=== PATIENT | male | born 1980 | race Caucasian/White ===

== ENCOUNTER 2024-05-12 18:21 | Observation (INO) | payer SELFPAY ==
[~2024-05-12] VITALS: Ht 180.3 cm; Wt 88.7 kg
[2024-05-12 20:05] LABS: Source, Urine Clean Catch
[2024-05-12 20:07] LABS: Appearance, Urine Hazy (Clear); Blood, Urine 4+ (Neg); Color, Urine Amber (P-Yellow); Glucose Qualitative, Urine Neg (Neg); Ketones, Urine 1+ (Neg); Leukocyte Esterase, Urine 3+ (Neg); Nitrite, Urine Pos (Neg); Protein, Urine 3+ (Neg); Urobilinogen, Urine 2+ (Normal)
[2024-05-12] MEDS ORDERED: Lactated Ringer's 1,000 ML IV ONE (20:10)
[2024-05-12 20:14] LABS: Bilirubin, Urine 1+ (Neg)
[2024-05-12 20:15] LABS: Bacteria Many /hpf; Granular Casts 0-2 /lpf (0); Mucus Light (0-Heavy); Squamous Epithelial Cells Rare /hpf (Few); White Blood Cells, Urine 25-50 /hpf (0-5)
[2024-05-12] MEDS ORDERED: Ondansetron HCl 2 MG / ML 2ML Vial IV PRN (22:50)
[2024-05-12] MEDS ORDERED: NS 1,000 ML IV SCH (22:50)
[2024-05-12] MEDS ORDERED: FentaNYL Citrate 50 MCG/ML 2 ML Injection IV PRN (22:50)
[2024-05-12] MEDS ORDERED: FLU VACC TS2024-25(6MOS UP)/PF 45 MCG/0.5 ML SYRINGE IM SCH (22:50)
[2024-05-12] MEDS ORDERED: Acetaminophen 325 MG TABLET PO PRN (22:50)
[2024-05-12] MEDS ORDERED: Enoxaparin 40 MG/0.4 ML SYR SC SCH ×2 (23:00)
[2024-05-12] MEDS ORDERED: CefTRIAXone Sodium 1,000 MG in NS 100 ML IV SCH (23:15)
[2024-05-13 00:14] VITALS: BP 131/75
[2024-05-13] MEDS ORDERED: FentaNYL Citrate 50 MCG/ML 2 ML Injection IV PRN (00:50)
[2024-05-13 04:53] LABS: BASOPHILS ABSOLUTE AUTO 0.05 K/mm3 (0.00-0.23); BASOPHILS PERCENT AUTO 1 % (0-2); EOSINOPHILS ABSOLUTE AUTO 0.06 K/mm3 (0.00-0.68); EOSINOPHILS PERCENT AUTO 1 % (0-6); Hematocrit 37.5 % (37.0-53.0); Hemoglobin 12.4 g/dL (13.5-17.5); IMMATURE GRAN ABSOLUTE AUTO 0.02 K/mm3 (0.00-0.10); IMMATURE GRAN PERCENT AUTO 0 % (0-1); LYMPHOCYTES PERCENT AUTO 12 % (21-46); MONOCYTES ABSOLUTE AUTO 0.97 K/mm3 (0.16-1.47); MONOCYTES PERCENT AUTO 9 % (4-13); Mean Corpuscular HGB 29.2 pg (26.0-34.0); Mean Corpuscular HGB Conc 33.1 g/dL (31.5-36.5); Mean Corpuscular Volume 88 fL (80-100); Mean Platelet Volume 10.4 fL (9.1-12.4); NEUTROPHILS ABSOLUTE AUTO 8.53 K/mm3 (1.96-9.15); NEUTROPHILS PERCENT AUTO 78 % (41-73); Platelet Count 203 K/mm3 (150-400); RDW Coefficient Variation 12.4 % (11.7-14.2); Red Blood Cell Count 4.25 M/mm3 (4.30-5.90); White Blood Cell Count 10.93 K/mm3 (4.00-11.30)
[2024-05-13 05:12] VITALS: BP 126/66
[2024-05-13 05:21] LABS: Albumin, Blood 2.8 g/dL (3.4-5.0); Albumin/Globulin Ratio 0.7 (0.8-1.8); Bilirubin, Total 0.4 mg/dL (0.1-1.0); Bun/Creatinine Ratio 7.5 (12.0-20.0); Calcium, Blood 8.1 mg/dL (8.5-10.1); Creatinine, Blood 1.6 mg/dL (0.60-1.20); Globulin, Blood 3.8 g/dL (2.2-4.0); Potassium, Blood 4.6 mmol/L (3.5-5.5); Total Protein, Blood 6.6 g/dL (6.4-8.2)
[2024-05-13 07:29] VITALS: BP 130/82
--- NOTE | 2024-05-13 07:32 | NUR ---
NEW ADMIT/COMMODITIES REQUIREMENTS ANALYST SUMMARY PT ARRIVED TO ROOM AT 2358. PT A/OX4. TANSFERED INDEPENDENTLY TO BED. PT ABLE TO MAKE NEEDS KNOWN. PT ADMIT FOR UTI/FLAVIO. ORIENTED PT TO ROOM AND CALL LIGHT. PT LOW URINE OUTPUT. BLADDER SCAN, POST VOID RISIDUAL 40MLS. VITALS REVIEWED AND STABLE. AFEBRILE.
[2024-05-13] MEDS ORDERED: CefTRIAXone Sodium 1,000 MG in NS 100 ML IV SCH (09:10)
[2024-05-13] MEDS ORDERED: CEFD300 PO (11:33)
[2024-05-13] MEDS ORDERED: Acetaminophen650 M1 PO (11:33)
[2024-05-13] MEDS ORDERED: PROBIOTIC1 EA14 PO (11:34)
--- NOTE | 2024-05-13 11:58 | NUR ---
discharged to home. pt requests that he wishes to ambulate out homself
--- NOTE | 2024-05-13 12:25 | NUR ---
DISCHARGE NOTE MR MUNSON WAS DISCHARGED HOME AT 1155HRS. HE AMBULATED OUT WITH STEADY GAIT. HE HAD RENAL US DONE THIS MORNING, HAD IVF/IV ABX. HE FELT READY TO GO HOME. HE VERBALISED UNDERSTANDING OF WRITTEN AND VERBAL DISCHARGE INSTRUCTIONS. HE HAD NO NEW QUESTIONS OR CONCERNS AT TIME OF DISCHARGE. PIV AND TELEMETRY REMOVED BY ASSISTANT BOOKKEEPER PRIOR TO DISCHARGE.
== END 2024-05-13 11:57 | disposition home or self-care (01) ==
LOC: ER 18:21 → MEDS 18:22 → ER 23:41 → MEDS 05-13 00:05 → ENPENDDIS 05-13 11:52 → MEDS 05-13 11:57
PROVIDERS: Physician Assistant; ADMIT Internal Medicine
DX: N17.9 Acute kidney failure, unspecified (principal); N39.0 Urinary tract infection, site not specified; E86.0 Dehydration; Z87.438 Personal history of other diseases of male genital organs
CPT/HCPCS: 36415; 76770; 80053; 81001; 83880; 85025; 87077; 87086; 87186; 96361; 96365; 96374; 96375; 96376; 99284-25; A9270; G0378; J0696; J1650; J2405; J3010; J7030; J7120

== ENCOUNTER → 2024-05-12 | Outpatient (CLI) | payer SELFPAY ==
[~2024-05-12] MED LIST: Acetaminophen650 M1 PO; CEFD300 PO; PROBIOTIC1 EA14 PO
[2024-05-12 15:44] LABS: BASOPHILS ABSOLUTE AUTO 0.06 K/mm3 (0.00-0.23); BASOPHILS PERCENT AUTO 0 % (0-2); EOSINOPHILS ABSOLUTE AUTO 0.01 K/mm3 (0.00-0.68); EOSINOPHILS PERCENT AUTO 0 % (0-6); Hematocrit 41.7 % (37.0-53.0); IMMATURE GRAN ABSOLUTE AUTO 0.06 K/mm3 (0.00-0.10); IMMATURE GRAN PERCENT AUTO 0 % (0-1); LYMPHOCYTES ABSOLUTE AUTO 0.99 K/mm3 (0.84-5.20); LYMPHOCYTES PERCENT AUTO 7 % (21-46); MONOCYTES ABSOLUTE AUTO 1.18 K/mm3 (0.16-1.47); MONOCYTES PERCENT AUTO 8 % (4-13); Mean Corpuscular HGB 29.6 pg (26.0-34.0); Mean Corpuscular HGB Conc 33.6 g/dL (31.5-36.5); Mean Corpuscular Volume 88 fL (80-100); Mean Platelet Volume 10.2 fL (9.1-12.4); NEUTROPHILS ABSOLUTE AUTO 12.12 K/mm3 (1.96-9.15); NEUTROPHILS PERCENT AUTO 84 % (41-73); Platelet Count 229 K/mm3 (150-400); RDW Coefficient Variation 12.5 % (11.7-14.2); Red Blood Cell Count 4.73 M/mm3 (4.30-5.90); White Blood Cell Count 14.42 K/mm3 (4.00-11.30)
[2024-05-12 15:55] LABS: Albumin, Blood 3.4 g/dL (3.4-5.0); Albumin/Globulin Ratio 0.9 (0.8-1.8); Bilirubin, Total 0.4 mg/dL (0.1-1.0); Bun/Creatinine Ratio 6.3 (12.0-20.0); Calcium, Blood 8.5 mg/dL (8.5-10.1); Creatinine, Blood 2.21 mg/dL (0.60-1.20); Total Protein, Blood 7.4 g/dL (6.4-8.2)
== END | disposition home or self-care (01) ==
LOC: LAB 15:22 → LAB SHORT 15:22
PROVIDERS: Physician Assistant
DX: R11.2 Nausea with vomiting, unspecified (principal); R10.9 Unspecified abdominal pain
CPT/HCPCS: 80053; 85025; 87086

== ENCOUNTER 2024-08-04 17:39 | Emergency (ER) | payer SELFPAY ==
[~2024-08-04] VITALS: Ht 180.3 cm; Wt 95.2 kg
[2024-08-04 18:09] LABS: Source, Urine Clean Catch
[2024-08-04 18:25] LABS: Appearance, Urine Cloudy (Clear); Bilirubin, Urine Neg (Neg); Blood, Urine 5+ (Neg); Color, Urine Yellow (P-Yellow); Glucose Qualitative, Urine Neg (Neg); Ketones, Urine Neg (Neg); Leukocyte Esterase, Urine 3+ (Neg); Nitrite, Urine Pos (Neg); Protein, Urine 3+ (Neg); Specific Gravity, Urine 1.025 (1.003-1.022); Urobilinogen, Urine NORM (Normal)
[2024-08-04 18:33] LABS: Red Blood Cells, Urine 50-100 /hpf (0-2); Squamous Epithelial Cells Few /hpf (Few); White Blood Cells, Urine TNTC /hpf (0-5)
[2024-08-04 18:33] LABS: BASOPHILS ABSOLUTE AUTO 0.04 K/mm3 (0.00-0.23); BASOPHILS PERCENT AUTO 1 % (0-2); EOSINOPHILS PERCENT AUTO 3 % (0-6); Hematocrit 47.8 % (37.0-53.0); Hemoglobin 16.4 g/dL (13.5-17.5); IMMATURE GRAN ABSOLUTE AUTO 0.01 K/mm3 (0.00-0.10); IMMATURE GRAN PERCENT AUTO 0 % (0-1); LYMPHOCYTES PERCENT AUTO 29 % (21-46); MONOCYTES PERCENT AUTO 7 % (4-13); Mean Corpuscular HGB 30.1 pg (26.0-34.0); Mean Corpuscular HGB Conc 34.3 g/dL (31.5-36.5); Mean Corpuscular Volume 88 fL (80-100); Mean Platelet Volume 10.3 fL (9.1-12.4); NEUTROPHILS ABSOLUTE AUTO 4.78 K/mm3 (1.96-9.15); NEUTROPHILS PERCENT AUTO 62 % (41-73); Platelet Count 211 K/mm3 (150-400); RDW Coefficient Variation 12.6 % (11.7-14.2); RDW Standard Deviation 40.3 fL (35.1-46.3); Red Blood Cell Count 5.45 M/mm3 (4.30-5.90); White Blood Cell Count 7.73 K/mm3 (4.00-11.30)
[2024-08-04 18:34] LABS: Bacteria Mod /hpf
[2024-08-04 18:55] LABS: Albumin, Blood 3.7 g/dL (3.4-5.0); Bilirubin, Total 0.5 mg/dL (0.1-1.0); Bun/Creatinine Ratio 19.6 (12.0-20.0); Calcium, Blood 9.1 mg/dL (8.5-10.1); Creatinine, Blood 1.12 mg/dL (0.60-1.20); Globulin, Blood 3.7 g/dL (2.2-4.0); Potassium, Blood 4.2 mmol/L (3.5-5.5); Total Protein, Blood 7.4 g/dL (6.4-8.2)
[2024-08-04] MEDS ORDERED: Macrobid 100 M100 MG PO (19:49)
[2024-08-04] MEDS ORDERED: Nitrofurantoin/Nitrofuran Mac 100 MG Cap PO ONE (19:50)
== END 2024-08-04 19:50 | disposition home or self-care (01) ==
LOC: ER 17:39
PROVIDERS: Physician Assistant
DX: N39.0 Urinary tract infection, site not specified (principal); R31.9 Hematuria, unspecified
CPT/HCPCS: 80053; 81001; 85025; 87077; 87086; 87186; 99283; A9270

== ENCOUNTER → 2025-04-01 | Outpatient (CLI) | payer OTHER ==
[~2025-04-01] MED LIST changes: +LEVFLO500 PO; +Macrobid 100 M100 MG PO; +ONDA4ODT MM
== END ==
LOC: LAB SHORT 19:19 → LAB 19:19
DX: N39.0 Urinary tract infection, site not specified (principal)
CPT/HCPCS: 87086

== ENCOUNTER 2025-04-02 02:16 | Emergency (ER) | payer OTHER ==
[~2025-04-02] VITALS: Ht 180.3 cm; Wt 102.1 kg
[~2025-04-02 02:16] MED LIST changes: -LEVFLO500 PO; -ONDA4ODT MM
[2025-04-02] MEDS ORDERED: Ondansetron HCl 2 MG / ML 2ML Vial IV ONE (03:30)
[2025-04-02] MEDS ORDERED: HYDROmorphone HCl/Pf 1MG SYR IV ONE (03:30)
[2025-04-02 03:33] LABS: BASOPHILS ABSOLUTE AUTO 0.03 K/mm3 (0.00-0.23); BASOPHILS PERCENT AUTO 0 % (0-2); EOSINOPHILS ABSOLUTE AUTO 0.00 K/mm3 (0.00-0.68); EOSINOPHILS PERCENT AUTO 0 % (0-6); Hematocrit 51.1 % (37.0-53.0); Hemoglobin 17.1 g/dL (13.5-17.5); IMMATURE GRAN ABSOLUTE AUTO 0.08 K/mm3 (0.00-0.10); IMMATURE GRAN PERCENT AUTO 1 % (0-1); LYMPHOCYTES ABSOLUTE AUTO 0.66 K/mm3 (0.84-5.20); LYMPHOCYTES PERCENT AUTO 4 % (21-46); MONOCYTES ABSOLUTE AUTO 1.31 K/mm3 (0.16-1.47); MONOCYTES PERCENT AUTO 7 % (4-13); Mean Corpuscular HGB Conc 33.5 g/dL (31.5-36.5); Mean Corpuscular Volume 87 fL (80-100); NEUTROPHILS ABSOLUTE AUTO 15.62 K/mm3 (1.96-9.15); NEUTROPHILS PERCENT AUTO 88 % (41-73); NRBC ABSOLUTE 0.00 K/mm3 (0.00-0.02); NRBC Auto 0.0 /100 WBC (0.0-0.2); Platelet Count 252 K/mm3 (150-400); RDW Coefficient Variation 12.7 % (11.7-14.2); RDW Standard Deviation 40.9 fL (35.1-46.3)
[2025-04-02 03:46] LABS: Alanine Aminotransfer (ALT/SGP 29.0 U/L (12-78); Albumin, Blood 3.7 g/dL (3.4-5.0); Albumin/Globulin Ratio 1.0 (0.8-1.8); Anion Gap 9.0 mmol/L (3-11); Aspartate Aminotrans (AST/SGOT 20.0 U/L (12-37); Bilirubin, Total 0.9 mg/dL (0.1-1.0); Blood Urea Nitrogen 16.0 mg/dL (8-24); CO2, Blood 23.0 mmol/L (21-32); Calcium, Blood 8.7 mg/dL (8.5-10.1); Chloride, Blood 106.0 mmol/L (98-108); Creatinine, Blood 1.35 mg/dL (0.60-1.20); Globulin, Blood 3.8 g/dL (2.2-4.0); Glucose, Blood 131.0 mg/dL (70-99); Potassium, Blood 4.1 mmol/L (3.5-5.5); Sodium, Blood 134.0 mmol/L (136-145); Total Protein, Blood 7.5 g/dL (6.4-8.2)
[2025-04-02 04:50] LABS: Source, Urine Clean Catch
[2025-04-02 05:05] LABS: Bilirubin, Urine Neg (Neg); Glucose Qualitative, Urine Neg (Neg); Ketones, Urine 1+ (Neg); Leukocyte Esterase, Urine 2+ (Neg); Protein, Urine 3+ (Neg); Specific Gravity, Urine 1.025 (1.003-1.022); Urobilinogen, Urine NORM (Normal)
[2025-04-02 05:16] LABS: Color, Urine Yellow (P-Yellow)
[2025-04-02] MEDS ORDERED: LEVFLO500 PO (06:10)
[2025-04-02] MEDS ORDERED: RX Prepack 6 Tabs Oxycodone 5mg UD ONE (06:10)
[2025-04-02] MEDS ORDERED: RX Prepack 2 Tabs Ondansetron ODT 4MG UD ONE (06:10)
[2025-04-02] MEDS ORDERED: ONDA4ODT MM (06:10)
== END 2025-04-02 06:42 | disposition home or self-care (01) ==
LOC: ER 02:16
PROVIDERS: Student in an Organized Health Care Education/Training Program
DX: N45.3 Epididymo-orchitis (principal)
CPT/HCPCS: 80053; 81001; 85025; 87086; 96374; 96375; 99284-25; A9270; J1171; J2405